=== PATIENT | female | born 1985 | race Hispanic/Latino ===

== ENCOUNTER 2016-12-13 06:55 | Inpatient (IN) | payer MEDICAID ==
[~2016-12-13] VITALS: Ht 137.2 cm; Wt 61.2 kg
[~2016-12-13 06:55] MED LIST: PREN1TAB87 PO
[2016-12-13] MEDS ORDERED: Sodium Chloride LOK Flush 10 mL Syringe IVFLUSH PRN (07:50)
[2016-12-13] MEDS ORDERED: Methylergonovine 0.2 mg/mL Inj IM PRN ×2 (07:50→13:10)
[2016-12-13] MEDS ORDERED: Carboprost 250 mCg/mL Inj IM PRN ×2 (07:50→13:10)
[2016-12-13] MEDS ORDERED: Hemorrhage Kit, Post Partum XX ONE ×2 (07:50→13:10)
[2016-12-13] MEDS ORDERED: Oxytocin 30 Units/500 mL LR 30 UNITS in IV Premix 1 EACH IV PRN ×2 (07:50→13:10)
[2016-12-13] MEDS: Lactated Ringer's 1,000 ML IV PRN ×2 (08:23→08:46)
[2016-12-13 08:35] LABS: Mean Corpuscular Hemoglobin 30.8 pg (27.0-35.0); Mean Corpuscular Volume 90.7 fL (81-100)
--- NOTE | 2016-12-13 09:00 | PCM.HPOB ---
Subjective Date of Service: Dec 13, 2016 Referring Provider: Admitting Physician: Patti Howe MD Primary Care Physician: Patti Howe MD Attending Physician: Patti Howe MD Chief Complaint Active labor History of Present History of Present Illness 31 y/o at 40w5d by first trimester ultrasound presenting to the [facility] in active labor. complicated by a UTI in first trimester , cholelithiasis on abdominal ultrasound w/o cholecystitis on 04/19/16 and Trichomonas infection (11/22/16) with an untreated partner. Patient declined test of cure on 11/29/16. She decline IOL at 41wks. Clinic visit 12/09/16: Cervix 3 /80/-3/mod/mid. She reports onset of contractions around 03:00 on 12/13/16. She has a history of demise in her first followed by vaginal delivery. The cause is known and patient reports evaluation in [place] for lack of movement; found to have no heart tones on ultrasound. She reports being told she was 5mos gestation but she states this occurred closer to 8mos gestation. At presentation she was found to be 3cm dilated, 100% effaced Bedside ultrasound confirmed vertex position. FHR baseline 130 with moderate variability, accelerations present and no decelerations. Contractions [id number]. Past Medical History Obstetrical History: Vaginal delivery/IUFD at 36w0d- cause unknown. (2002) -at 40w0d, oligohydramnios, late presentation to care at 30wks, SROM with thick meconium (2007) -at 40wks, oligohydramnios, late presentation to care, induction for late dates, elevated bile assay. Gynecologic History: No hx of abnormal Paps Medical History: Recurrent UTIs, pyelonephritis Cholelithiasis Surgical History: None Hx Tobacco Use: No Smoking Status: Never Smoker Hx Alcohol Use: No Hx Substance Use: No Past Family History Living Arrangement: with Family Allergy Coded Allergies: No Known Allergies (Verified Allergy, Unknown, 04/18/16) Exam Vital Signs temp 36.8, BP 101/79, HR 81. Exam FHR with baseline 130, moderate variability, accelerations present, no decelerations. Constitutional: Well-developed, Well-nourished HEENT: Atraumatic Lungs: Clear to Auscultation Heart: Regular Rate/Rhythm Abdomen: Gravid Extremities: No Edema Neurological/Psychiatric: Alert, Oriented X3 Neuro: Grossly Neurologically Intact Labs/Diagnostics Lab/Diagnostic Information Labs: Blood type: O positive Antibody screen- negative GBS negative Varicella/Rubella immune RPR nonreactive HBsAg- negative HepC- negative HIV screen nonreactive Chlamydia/Gonorrhea- negative Hgb/Hct 13.1/38.6 TSH 0.477 HbA1c 5.3 Positive for Trichomonas 11/17/16 at 37wks. US OB<14wks+OB TRANSVAG (04/18/16) -LMP: unknown -LMP-based HUY: unknown -First dating scan 04/18/16 -HUY from first dating scan 12/08/16. Maternal Blood Type: O Hx Rho(D) Immune Globulin: Yes Antibody Screen: Negative Group B Strep Results: Negative Rubella: Immune OB Intrapartum Assessment/Plan Assessment 31 y/o at 40w5d by first trimester ultrasound presenting to the [facility] in active labor. Problems: (1) Active labor at term Plan: -Anticipate , continue expectant management. -Epidural requested, Anesthesiology consulted. Status: Acute ICD Code: [id number] Pain Management: Epidural Pain Evaluation: Adequate Pain Control Post plan: Continue routine post care Attending Statement The patient was seen and examined together with Dr. Bonilla on 12/13/2016 and I agree with the history, exam and plan as outlined in the note above. Epidural placed by anesthesia and patient was comfortable so AROM performed. Moderate clear fluids obtained. She was 6/100/0/mid/vertex. Anticipate . /MD Chad Maradiaga Courtney M DO Dec 13, 2016 08:00 Lucas Garcia MD Dec 13, 2016 10:14
[2016-12-13] MEDS ORDERED: Lactated Ringer's 500 ML IV ONE (09:13)
[2016-12-13] MEDS ORDERED: fentaNYL 2 mCg/mL-Bupiv 0.125% 100 ML EPIDURAL SCH (09:15)
[2016-12-13] MEDS ORDERED: Atropine 1 mg/10 mL (Code) Syringe IVPUSH PRN (09:15)
[2016-12-13] MEDS ORDERED: EPHEDrine Sulfate 50 mg/mL Inj IVPUSH PRN (09:15)
[2016-12-13] MEDS ORDERED: Ondansetron 2 mg/mL 2 mL Inj IVPUSH PRN (09:15)
--- NOTE | 2016-12-13 09:15 | PCM.HPANE ---
Patient Data Surgeon Admitting Provider:Patti Howe MD Attending Provider:Patti Howe MD Primary Care Physician:Patti Howe MD Other Provider:[facility] Reason for Visit Term Labor TERM LABOR Ht/WT & BMI Body Mass Index Allergies Coded Allergies: No Known Allergies (Verified Allergy, Unknown, 04/18/16) Past Anesthesia History Anesthesia History: Denies:: Abnormal Airway, Difficult Intubation Diabetes History Hx Diabetes?: No MRSA MRSA: No Medications Hypertension Medication: No Home Meds Incl Beta Qian: No Active Scripts Vit W-Ca,Fe,FA(<1 mg) ( Vitamins)1 Each Tablet1 Each PO DAILY # 90 TABLET Ref 3 Prov:Carson Young MD 06/03/16 History HEENT History: Denies:: Abnormal Airway Difficult Intubation Hx of Heart Problems?: No Cardiovascular History: Denies:: Congestive Heart Failure Hypertension Hx of Respiratory Problem?: No Hx Neurologic Problems?: No Hx of GI Problems?: No Hx of Problems?: No HX of Peritoneal Dialysis: No Female Hx: Positive for:: Currently Hx Musculoskeletal Problems?: No Hx of Psycho/Social Problems?: No Hx Surgeries?: No Hx Diabetes: No Hx Alcohol Use: NoHx Substance Use: No Smoking Status: Never Smoker Have You Smoked inLast 12 mo: No Stop/Bang Treated for Sleep Apnea?: No Do You Have a CPAP Machine?: No Risk Assessment Category Category 1A: Patient has history of documented sleep apnea, and HAS NOT received any narcotic, sedative or anesthesia administration during this stay. Category 1B: Patient has history of documented sleep apnea, and HAS received any narcotic , sedative or anesthesia administration during this stay Category 2: Patient has SUSPECTED Obstructive Sleep Apnea, and HAS received any narcotic , sedative or anesthesia administration during this stay. Category 3: Patient has SUSPECTED Obstructive Sleep Apnea and HAS NOT received narcotic, sedative or anesthesia administration during this stay. Category 4: Outpatient in Procedural Areas with known sleep apnea or who screen positive for High Risk via the STOP/BANG questionnaire. Exam Exam General Appearance: Alert, Oriented X3, Cooperative, Moderate Distress (labor pain) HEENT/AIRWAY: MP 2 Lungs: Clear to Auscultation, Normal Air Movement Heart: Exam Unremarkable, Regular Rate/Rhythm, No Murmurs/Rubs/Gallops Meds/Labs/Diagnostics Labs Test 12/13/16 08:15 White Blood Count 12.4th/mm3 (3.8-10.1) Red Blood Count 4.51mil/mm3 (3.90-5.20) Hemoglobin 13.9g/dL (12.0-15.6) Hematocrit 40.9% (35.0-46.0) Mean Corpuscular Volume 90.7fL (81-100) Mean Corpuscular Hemoglobin 30.8pg (27.0-35.0) Mean Corpuscular Hemoglobin Concent 34.0% (32.0-37.0) Red Cell Distribution Width 13.4% (12.3-15.4) Platelet Count 301bil/L (150-400) Plan Impression Patient chart reviewed, patient interviewed and anesthestic plan with risks, benefits, and alternatives discussed, and informed consent obtained. ASA Physical Status: ASA1 Normal Healthy Anesthetic Plan: Epidural Bene/Risks/Altern/Consents: Yes HP Complete Prior to Induction: Yes Justin Menjivar MD Dec 13, 2016 09:15
[2016-12-13] MEDS: Lactated Ringer's 1,000 ML IV SCH ×2 (10:00→11:30)
--- NOTE | 2016-12-13 10:30 | PCM.PNOBIP ---
Subjective Date of Service Dec 13, 2016 Delivery plan: Spontaneous Vaginal Delivery Visit History Natasha is a 31 y/o at 40w5d by first trimester ultrasound presenting to the [facility] in active labor. At 8am she was 3cm, at 8:30 she was 5cm and then received an epidural. At 9:30 she was found to be 6cm and was ruptured with clear fluids. She has experienced a couple lower BPs so has received 2 doses of ephedrine. Subjective Comfortable with epidural Group B Strep Results: Negative Rubella: Immune Blood Type: O Labs Laboratory Tests 12/13/16 08:15: White Blood Count 12.4, Red Blood Count 4.51, Hemoglobin 13.9, Hematocrit 40.9, Mean Corpuscular Volume 90.7, Mean Corpuscular Hemoglobin 30.8, Mean Corpuscular Hemoglobin Concent 34.0, Red Cell Distribution Width 13.4, Platelet Count 301 Exam Vital Signs Vital Signs Contraction frequency in minutes: MVUs: Vital Signs: VS reviewed, stable (98/58 73) Heart Tracings Heart Tones Baseline 150 bpm Heart Rate Variability: Minimal Heart Rate Accelleration: Present (and present with scalp stimulation) Heart Rate Deceleration: Present (appears to be possible early deceleration, but tocometry is not picking up contractions, so this cannot be discerned with current exam.) Heart Rate Category: II Tocometry/IUPC Contraction frequency in minutes: MVUs: Sterile Vaginal Exam Cervical Dilation: 6 cms Cervical Effacement: 100 % Station: 0 Exam General: Alert, Oriented X3, Cooperative, Moderate Distress (labor pain) OB Intrapartum Assessment/Plan Assessment IUP at 40w5d in active labor with AROM at 9:30. -IUPC and FSE placed easily with exam given difficulty with appropriate monitoring. -Continue labor management and anticipate . Problems: (1) Active labor at term Status: Acute ICD Code: [id number] Pain Evaluation: Adequate Pain Control Post plan: Continue routine post care Lucas Garcia MD Dec 13, 2016 10:30
--- NOTE | 2016-12-13 12:15 | PCM.PNOBIP ---
Subjective Date of Service Dec 13, 2016 Delivery plan: Spontaneous Vaginal Delivery Visit History Natasha is a 31 y/o at 40w5d by first trimester ultrasound presenting to the [facility] in active labor. At 8am she was 3cm, at 8:30 she was 5cm and then received an epidural. At 9:30 she was found to be 6cm and was ruptured with clear fluids. She has experienced a couple lower BPs so has received 2 doses of ephedrine. Subjective She is feeling the need to push. Group B Strep Results: Negative Rubella: Immune Blood Type: O Labs Laboratory Tests 12/13/16 08:15: White Blood Count 12.4, Red Blood Count 4.51, Hemoglobin 13.9, Hematocrit 40.9, Mean Corpuscular Volume 90.7, Mean Corpuscular Hemoglobin 30.8, Mean Corpuscular Hemoglobin Concent 34.0, Red Cell Distribution Width 13.4, Platelet Count 301 Exam Vital Signs Vital Signs Contraction frequency in minutes: MVUs: Vital Signs: VS reviewed, stable Heart Tracings Heart Tones Baseline 160 -170 bpm Heart Rate Variability: Moderate (to Marked) Heart Rate Accelleration: Present Heart Rate Deceleration: Present (variables with return to baseline) Heart Rate Category: II Sterile Vaginal Exam Cervical Dilation: 10 cms Cervical Effacement: 100 % Station: +1 Exam General: Alert, Oriented X3, Cooperative, Moderate Distress (labor pain) OB Intrapartum Assessment/Plan Assessment Natasha is a 31 y/o at 40w5d in active labor. Start expulsive efforts. Problems: (1) Active labor at term Status: Acute ICD Code: [id number] Pain Evaluation: Adequate Pain Control Post plan: Continue routine post care Lucas Garcia MD Dec 13, 2016 12:15
[2016-12-13] MEDS: Oxytocin 10 Unit/mL Inj IM PRN (12:55)
[2016-12-13] MEDS ORDERED: Lactated Ringer's 1,000 ML IV SCH (13:09)
[2016-12-13] MEDS ORDERED: Oxytocin 10 Unit/mL Inj IM PRN (13:10)
[2016-12-13] MEDS ORDERED: Witch Hazel-Glycerin Pads TOPICAL PRN (13:10)
[2016-12-13] MEDS ORDERED: LANOlin HPA 7 Gm Ointment TOPICAL PRN (13:10)
[2016-12-13] MEDS ORDERED: Benzocaine (Dermoplast) 20% 60 Gm Spray TOPICAL PRN (13:10)
--- NOTE | 2016-12-13 13:47 | PCM.OBVAG ---
Vaginal Delivery Date of Service Dec 13, 2016 Pre Operative Diagnosis Pre Operative Diagnosis 1. 40weeks gestation 2. Active labor Post Operative Diagnosis Post Operative Diagnosis 1. 40weeks gestation 2. Active labor 3. Thick meconium Procedure Obstetical Procedure: Normal Spontaneous Vaginal Delivery, Repair of Perineal Tear (2nd degree) Director Pharmacovigilance/E Learning Coordinator Provider and E Learning Coordinator: MD Mellisa Maradiaga, DO, HO1 Indication for Procedure Indication for Procedure Natasha is a 31 y/o at 40w5d by first trimester ultrasound presenting to the [facility] in active labor. At 8am she was 3cm, at 8:30 she was 5cm and then received an epidural. At 9:30 she was found to be 6cm and was ruptured with clear fluids. Following the epidural she experienced a couple lower BPs so received 2 doses of ephedrine. She made normal progress through labor and was found to be complete. Findings Findings: No cervical, vaginal or vulvar lacerations noted. Obstetrical Findings: [place] (Female), Cord (3 Vessel), Weight ( 3481 grams), Presentation (Vertex), 1 minute (8), 5 minutes (9), Placenta (Intact/Normal), Perineal Laceration (2nd degree) Analgesia/Medications Obstetrical Anesthesia: Epidural Procedure Details Procedure Details With expulsive efforts she delivered the head over an intact perineum followed by the rest of the infant. Terminal thick brown meconium was noted. The baby was placed on the maternal abdomen and active warming and stimulation provided. After 1 minute, the cord was cut and clamped. Cord blood collected. Pitocin started. With gentle traction the placenta delivered spontaneously intact. Trailing membranes grasped and removed with ring forceps. A second degree perineal laceration was noted and repaired in the normal fashion with 2- 0 vicryl. Uterine message revealed normal bleeding and firm uterus. Sponge, needle and instrument counts were correct x 2 at the close of the procedure. The patient tolerated the procedure well and she and her baby are stable in the delivery room. IV Intake/Output Catheters: Straight (100mL) Blood Loss & Administration Estimated Blood Loss: 300 (mL) Post Procedure Plan Post delivery Condition: Mom stable, Baby stable to nursery Attending Statement I was present for and performed the entire procedure. / MD Radha Maradiaga Jean E MD Dec 13, 2016 13:46
[2016-12-13] MEDS ORDERED: Sodium Chloride LOK Flush 10 mL Syringe IVFLUSH SCH (16:30)
[2016-12-14 07:36] LABS: Mean Corpuscular Hemoglobin 30.5 pg (27.0-35.0); Mean Corpuscular Volume 91.8 fL (81-100)
[2016-12-14] MEDS: HYDROcodone-APAP 5-325 mg Tablet PO PRN ×2 (08:51→12:40)
--- NOTE | 2016-12-14 16:26 | PCM.DIMED ---
Discharge Instructions Date of Service Dec 14, 2016 Dates of Hospitalization Dec 13, 2016 at 07:38 Diet No restrictions Activity No restrictions Call your provider Fever or Chills, Shortness of breath, Bleeding, Chest pain, Vomitting, Excessive diarrhea, Weakness (unilateral) Patient Instructions Follow-up with PCP in: 6 weeks Caesar Guido MD Dec 14, 2016 16:26
[2016-12-14] MEDS ORDERED: DOCU-41 PO (16:28)
[2016-12-14] MEDS ORDERED: IBUP800T28 PO (16:28)
[2016-12-14] MEDS ORDERED: METO-301 PO (16:28)
[2016-12-14] MEDS ORDERED: HYDR-4003 PO (16:28)
--- NOTE | 2016-12-14 20:43 | DIS ---
[address] [address] DISCHARGE SUMMARY PATIENT: DARIAN SHELDON : 1985 MR#: [id number] ADMIT: 12/13/2016 JOB ID: [id number] DIS: 12/14/2016 ADMITTING DIAGNOSIS: A 31-year-old, 4, para 2-1-0-3 at 40 weeks and 5 days in active labor. DISCHARGE DIAGNOSIS: A 31-year-old, 4, para 4, status post spontaneous vaginal delivery at term. The patient is a 31-year-old, 4, para 4 now who came to [facility] on December 13, 2016 in active labor. She was 3 cm dilated, 80% effaced, -3 station. The patient had regular contractions every 3 minutes. The heart rate tracing was reactive, category 1. She was admitted for delivery. The patient received an epidural when she was 5 cm dilated, progressed to 6 cm at 9:30 a.m. She had normal progress in labor and progressed to full dilation. The patient underwent spontaneous vaginal delivery that was uncomplicated. Delivered a female with weight 3481 g, Apgars 8 at one minute and 9 at five minutes. The patient had a second degree midline perineal laceration that was repaired with 3-0 Vicryl. Estimated blood loss was 300 mL. One day one, December 14, 2016, the patient was stable, afebrile, ambulating, trying to breast feed. She had problems with milk production. On exam of the abdomen, it was soft, nondistended, nontender, the fundus of the uterus was firm and located at the level of the umbilicus. The patient has not had any abnormal vaginal bleeding. Postoperative CBC showed WBC count of 11.2, hemoglobin 10.4, hematocrit 31.3 and platelet count 236. consult was received. The patient was discharged home on December 14, 2016 with all discharge criteria met. She was given medications for pain relief including Motrin extra-strength 800 mg p.o. t.i.d. p.r.n., Vicodin 5/325 mg p.o. t.i.d. p.r.n., Colace 100 mg p.o. b.i.d. p.r.n. and Reglan 10 mg p.o. t.i.d. p.r.n. for improvement of milk production. Follow up visit in the clinic is scheduled in six weeks.
--- NOTE | 2016-12-15 09:34 | PCM.ANEP1 ---
Post Anesthesia Phase 1 PACU Phase 1 Assessment Date of Service: Dec 13, 2016 Anesthetic Administered: Epidural Level of Alertness: Awake, talking ELIZABETH's with Equal Strength: Yes Pain: No Nausea or Vomiting: No Oxygen Delivery: Room Air Dermatome Level: Full Sensation Justin Menjivar MD Dec 15, 2016 09:34
--- NOTE | 2016-12-15 09:35 | PCM.ANEP2 ---
Post Anesthesia Evaluation ASA/CMS Post Anesthesia VS in Patient's Normal Range?: Yes Resp Stable; Airway Patent?: Yes CV Function & Hydration Stable: Yes Mental Status Recovered?: Yes Pain control Satisfactory?: Yes N/V Control Satisfactory?: Yes Justin Menjivar MD Dec 15, 2016 09:34
== END 2016-12-14 17:30 | disposition home or self-care (01) | DRG 775 ==
LOC: FBCO 06:55 → FBC 07:38
PROVIDERS: ADMIT Obstetrics & Gynecology; ATTEND Obstetrics & Gynecology
PROC: 0KQM0ZZ Repair Perineum Muscle, Open Approach (ICD-10-PCS; principal; 2016-12-13)
PROC: 10E0XZZ Delivery of Products of Conception, External Approach (ICD-10-PCS; 2016-12-13)
PROC: 10907ZC Drainage of Amniotic Fluid, Therapeutic from Products of Conception, Via Natural or Artificial Opening (ICD-10-PCS; 2016-12-13)
PROC: 10H07YZ Insertion of Other Device into Products of Conception, Via Natural or Artificial Opening (ICD-10-PCS; 2016-12-13)
DX: O70.1 Second degree perineal laceration during delivery (principal); O77.0 Labor and delivery complicated by meconium in amniotic fluid; Z37.0 Single live birth; Z87.440 Personal history of urinary (tract) infections; Z3A.40 40 weeks gestation of pregnancy